=== PATIENT | female | born 1955 | race Hispanic/Latino ===

== ENCOUNTER 2019-12-31 23:00 | Emergency (ER) | payer OTHER ==
[~2019-12-31] VITALS: Ht 152.4 cm; Wt 68.0 kg
[2019-12-31] MEDS ORDERED: ALBUTEROL SULFATE HFA 8GM INHALATION AEROSOL INH PRN (23:15)
[2019-12-31] MEDS ORDERED: ACETAMINOPHEN 325 MG TAB PO STA (23:33)
[2019-12-31 23:48] LABS: BASOPHILS % 0.1 % (0.0-1.0); HEMATOCRIT 38.7 % (34.2-44.1); HEMOGLOBIN 12.7 g/dL (12.0-16.0); LYMPHOCYTES # (AUTO) 1.3 (1.0-3.2); LYMPHOCYTES % 15.8 % (18.0-39.1); MEAN CORPUSCULAR HEMOGLOBIN 27.2 pg (28-32); MEAN CORPUSCULAR HGB CONC 32.8 g/dL (31-35); MEAN CORPUSCULAR VOLUME 82.9 fL (81-99); MONOCYTES # (AUTO) 0.3 (0.2-0.8); MONOCYTES % 3.9 % (4.4-11.3); NEUTROPHILS # (AUTO) 6.4 (2.1-6.9); NEUTROPHILS % 79.8 % (38.7-80.0); PLATELET COUNT 184 x10e3/uL (140-360); RED BLOOD COUNT 4.67 x10e6/uL (3.6-5.1); RED CELL DISTRIBUTION WIDTH 13.6 % (11.7-14.4)
[2020-01-01 00:06] LABS: ALANINE AMINOTRANSFERASE 37 IU/L (0-55); ALBUMIN 3.6 g/dL (3.5-5.0); ALBUMIN/GLOBULIN RATIO 0.8 (0.8-2.0); ALKALINE PHOSPHATASE 72 IU/L (40-150); ANION GAP 16.8 mmol/L (8-16); BLOOD UREA NITROGEN 10 mg/dL (7-26); BUN/CREATININE RATIO 13 (6-25); CALCIUM 8.3 mg/dL (8.4-10.2); CARBON DIOXIDE 18 mmol/L (22-29); CHLORIDE 100 mmol/L (98-107); CREATININE, SERUM 0.75 mg/dL (0.57-1.11); EST GLOMERULAR FILTRATION RATE > 60 ML/MIN (60-); GLUCOSE 102 mg/dL (74-118); POTASSIUM 3.8 mmol/L (3.5-5.1); SODIUM 131 mmol/L (136-145)
[2020-01-01] MEDS ORDERED: KETOROLAC TROMETHAMINE 30 MG/ML VIAL IV STA (00:17)
--- NOTE | 2020-01-01 00:45 | Diagnostic Imaging Report ---
EXAMINATION: CHEST SINGLE (PORTABLE) INDICATION: Dyspnea COMPARISON: None FINDINGS: TUBES and LINES: None. LUNGS: Normal lung volumes. Multiple groundglass opacities in the perihilar and lower lung airspace. PLEURA: No pleural effusion or pneumothorax. HEART AND MEDIASTINUM: The cardiomediastinal silhouette is unremarkable. BONES AND SOFT TISSUES: No acute osseous lesion. Soft tissues are unremarkable. UPPER ABDOMEN: No free air under the diaphragm. IMPRESSION: Findings concerning for multifocal pneumonia although edema is possible. Signed by: Jovan Villalta DO on 01/01/2020 12:42 AM
--- NOTE | 2020-01-01 01:09 | Emergency Department Note ---
History of Present Illnes History of Present Illness Chief Complaint: COVID PUI History of Present Illness This is a 64 year old female presents to the ED for 8 days of malaise and fevers. Increasing dyspnea in the last 24 hours. Patient seen at bedside in mild respiratory distress. . Historian: Patient Arrival Mode: Car Onset (how long ago): day(s) (8) Severity: moderate Duration (how long): day(s) Timing of current episode: constant Progression: worsening Chronicity: new Associated symptoms: Reports fever/chills, Reports malaise, Reports shortness of breath, Reports weakness Treatments prior to arrival: none Past Medical/Family History Physician Review I have reviewed the patient's past medical and family history. Any updates have been documented here. Past Medical History Recent Fever: Yes Clinical Suspicion of Infectio: Yes New/Unexplained Change in Ment: No Past Medical History: GERD Other Medical History: FATTY LIVER OSTEOPOROSIS Other Surgery: TUBAL LIGATION Social History Smoking Cessation: Never Smoker Counseling Performed: Yes Any Illegal Drug Use: No Other Last Tetanus: UNKNOWN Review of Systems Review of Systems Constitutional: Reports fever, Reports malaise Respiratory: Reports dyspnea Physical Exam Related Data Allergies: Coded Allergies: No Known Allergies (Unverified , 12/31/19) Triage Vital Signs Vital Signs Date Time Temp Pulse Resp B/P (MAP) Pulse Ox O2 Delivery O2 Flow Rate FiO2 12/31/19 23:05 100.1 92 18 121/77 97 Physical Exam CONSTITUTIONAL Constitutional: Present distressed, Present ill appearing HENT HENT: Present normocephalic, Present atraumatic, Present oropharynx clear/moist, Present nose normal HENT L/R: Present left ext ear normal, Present right ext ear normal EYES Eyes: Reports PERRL, Reports conjunctivae normal NECK Neck: Present ROM normal PULMONARY Pulmonary: Present other (tachypnea) CARDIOVASCULAR Cardiovascular: Present regular rhythm, Present heart sounds normal, Present capillary refill normal, Present normal rate GASTROINTESTINAL Abdominal: Present soft, Present nontender, Present bowel sounds normal GENITOURINARY Genitourinary: Present exam deferred SKIN Skin: Present warm, Present dry MUSCULOSKELETAL Musculoskeletal: Present ROM normal NEUROLOGICAL Neurological: Present alert, Present oriented x 3, Present no gross motor or se nsory deficits PSYCHOLOGICAL Psychological: Present mood/affect normal, Present judgement normal Results Laboratory Result Diagram: 12/31/19 7760 12/31/19 1255 Laboratory Laboratory Tests Test 12/31/19 23:15 White Blood Count 8.00 x10e3/uL (4.8-10.8) Red Blood Count 4.67 x10e6/uL (3.6-5.1) Hemoglobin 12.7 g/dL (12.0-16.0) Hematocrit 38.7 % (34.2-44.1) Mean Corpuscular Volume 82.9 fL (81-99) Mean Corpuscular Hemoglobin 27.2 pg (28-32) Mean Corpuscular Hemoglobin Concent 32.8 g/dL (31-35) Red Cell Distribution Width 13.6 % (11.7-14.4) Platelet Count 184 x10e3/uL (140-360) Neutrophils (%) (Auto) 79.8 % (38.7-80.0) Lymphocytes (%) (Auto) 15.8 % (18.0-39.1) Monocytes (%) (Auto) 3.9 % (4.4-11.3) Eosinophils (%) (Auto) 0.0 % (0.0-6.0) Basophils (%) (Auto) 0.1 % (0.0-1.0) Neutrophils # (Auto) 6.4 (2.1-6.9) Lymphocytes # (Auto) 1.3 (1.0-3.2) Monocytes # (Auto) 0.3 (0.2-0.8) Eosinophils # (Auto) 0.0 (0.0-0.4) Basophils # (Auto) 0.0 (0.0-0.1) Absolute Immature Granulocyte (auto 0.03 x10e3/uL (0-0.1) Sodium Level 131 mmol/L (136-145) Potassium Level 3.8 mmol/L (3.5-5.1) Chloride Level 100 mmol/L (98-107) Carbon Dioxide Level 18 mmol/L (22-29) Anion Gap 16.8 mmol/L (8-16) Blood Urea Nitrogen 10 mg/dL (7-26) Creatinine 0.75 mg/dL (0.57-1.11) Estimat Glomerular Filtration Rate > 60 ML/MIN (60-) BUN/Creatinine Ratio 13 (6-25) Glucose Level 102 mg/dL (74-118) Calcium Level 8.3 mg/dL (8.4-10.2) Total Bilirubin 0.5 mg/dL (0.2-1.2) Aspartate Amino Transf (AST/SGOT) 49 IU/L (5-34) Alanine Aminotransferase (ALT/SGPT) 37 IU/L (0-55) Alkaline Phosphatase 72 IU/L (40-150) Total Protein 8.1 g/dL (6.5-8.1) Albumin 3.6 g/dL (3.5-5.0) Globulin 4.5 g/dL (2.3-3.5) Albumin/Globulin Ratio 0.8 (0.8-2.0) Imaging Imaging results reviewed: Yes Impressions [place] [id number] Patient Name: MELISSA RIVERO MR #: [id number] : 1955 Age/Sex: 64/F Req #: [id number] Adm Physician: Ordered by: PERFECTO ALLEN DO Report #: [id number] Location: ER Room/Bed: Procedure: [id number] DX/CHEST SINGLE (PORTABLE) Exam Date: Exam Time: REPORT STATUS: Signed EXAMINATION: CHEST SINGLE (PORTABLE) INDICATION: Dyspnea COMPARISON: None FINDINGS: TUBES and LINES: None. LUNGS: Normal lung volumes. Multiple groundglass opacities in the perihilar and lower lung airspace. PLEURA: No pleural effusion or pneumothorax. HEART AND MEDIASTINUM: The cardiomediastinal silhouette is unremarkable. BONES AND SOFT TISSUES: No acute osseous lesion. Soft tissues are unremarkable. UPPER ABDOMEN: No free air under the diaphragm. IMPRESSION: Findings concerning for multifocal pneumonia although edema is possible. Signed by: Jovan Villalta DO on 01/01/2020 12:42 AM Dictated By: JOVAN VILLALTA DO Transcribed By: MERLE on 01/01/2041 COPY TO: PERFECTO ALLEN DO~ Assessment & Plan Medical Decision Making MDM 64 yof with family member testing positive for COVID-19 presents to the ED for dyspnea increasing over the week. High suspicion for the COVID-19 URI . Plan to admit to the hospital . High concern for respiratory decompensation Assessment & Plan Final Impression: (1) Upper respiratory tract infection due to COVID-19 virus (2) Hyponatremia Depart Disposition: TRANS TO OTHER [facility] Last Vital Signs Date Time Temp Pulse Resp B/P (MAP) Pulse Ox O2 Delivery O2 Flow Rate FiO2 01/01/20 00:33 74 22 112/82 97 12/31/19 23:05 100.1 Medications in the ED Albuterol INH RQ4H PRN INH SHORTNESS OF BREATH; Start 12/31/19 at 23:15; Stop 01/30/20 at 23:14 Acetaminophen 1,000 mg ONCE STAT PO ; Start 12/31/19 at 23:33; Stop 12/31/19 at 23:37; Status DC Ketorolac Tromethamine 30 mg ONCE STAT IV ; Start 01/01/20 at 00:17; Stop 01/01/20 at 00:31; Status DC PERFECTO ALLEN DO Jan 01, 2020 01:09
[2020-01-01 04:01] VITALS: BP 101/72
== END 2020-01-01 04:04 | disposition other institution (70) ==
LOC: ER 23:00
DX: R50.9 Fever, unspecified (principal); R53.81 Other malaise; U07.1 COVID-19; J98.8 Other specified respiratory disorders; K21.9 Gastro-esophageal reflux disease without esophagitis
CPT/HCPCS: 36415; 71045; 80053; 85025; 87635; 99284; J1885